=== PATIENT | male | born 1970 | race Caucasian/White ===

== ENCOUNTER 2018-04-03 03:19 | Emergency (ER) | payer MEDICAID | END 2018-04-03 06:16 | disposition home or self-care (01) | LOC: FTE 03:19 | DX: S81.812A Laceration without foreign body, left lower leg, initial encounter (principal); W25.XXXA Contact with sharp glass, initial encounter; Y92.89 Other specified places as the place of occurrence of the external cause | CPT/HCPCS: 12002; 73590; 99283-25 ==